=== PATIENT | male | born 1975 | race Native Hawaiian/Other Pacific Islander ===

== ENCOUNTER 2016-08-14 15:31 | Outpatient (CLI) | payer BC | END 2016-08-14 16:31 | disposition home or self-care (01) | LOC: LABW 15:31 | DX: D45 Polycythemia vera (principal) | CPT/HCPCS: 36415; 85014; 85018; 99195 ==

== ENCOUNTER 2019-03-02 07:34 | Outpatient (CLI) | payer BC ==
[2019-03-02 07:44] LABS: PLATELET COUNT 176 K/uL (142-355); POTASSIUM 3.9 mmol/L (3.6-5.2)
== END 2019-03-02 20:25 | disposition home or self-care (01) ==
LOC: LAB 07:34
PROVIDERS: Internal Medicine
DX: Z00.00 Encounter for general adult medical examination without abnormal findings (principal); Z12.5 Encounter for screening for malignant neoplasm of prostate
CPT/HCPCS: 36415; 80053; 80061; 84443; 85027; G0103

== ENCOUNTER 2019-08-21 11:31 | Outpatient (CLI) | payer BC | END 2019-08-21 19:08 | disposition home or self-care (01) | LOC: RAD 11:31 | DX: M25.562 Pain in left knee (principal) ==

== ENCOUNTER 2021-08-12 13:03 | Outpatient (CLI) | payer BC | END 2021-08-12 19:31 | disposition home or self-care (01) | LOC: RAD 13:03 | PROVIDERS: ATTEND Orthopaedic Surgery | DX: M25.561 Pain in right knee (principal) ==